=== PATIENT | male | born 1980 | race Caucasian/White ===

== ENCOUNTER 2022-11-27 22:39 | Emergency (ER) | payer BC ==
[2022-11-27] MEDS ORDERED: SODIUM BICARBONATE 8.4% 50 MEQ/50 ML VIAL ONE (22:58)
[2022-11-27] MEDS ORDERED: NALOXONE HCL 0.4 MG/ML VIAL ONE (23:16)
[2022-11-27] MEDS ORDERED: NALOXONE HCL 0.4 MG/ML VIAL IVPUSH ONE (23:34)
[2022-11-27 23:48] VITALS: BP 0/0; BMI 26.6
[2022-11-28 01:45] LABS: HEMOGLOBIN 16.1 GM/dL (11.7-16.9); MCH 30.9 pg (25.7-33.7); MCHC 29.3 g/dl (32.0-35.9); MEAN CELL VOLUME 105.5 fl (80-96); MEAN PLT VOLUME 10.1 fl (7.5-11.1); RBC 5.21 M/mm3 (4.00-5.60); RDW 15.2 % (11.9-15.9); WHITE BLOOD COUNT 15.4 K/mm3 (4.0-10.0)
[2022-11-28 02:00] LABS: CHLORIDE 89 mmol/L (98-107); SODIUM 129 mmol/L (136-145)
[2022-11-28 02:02] LABS: ALBUMIN 3.4 g/dl (3.4-5.0)
[2022-11-28 02:03] LABS: BLOOD UREA NITROGEN 11.5 mg/dL (7-18); CO2 19 mmol/L (21-32)
[2022-11-28 02:05] LABS: CREATININE 1.9 mg/dL (0.55-1.3)
[2022-11-28 02:07] LABS: BILIRUBIN,TOTAL 0.8 mg/dL (0.2-1); TOT PROT 7.4 g/dl (6.4-8.2)
[2022-11-28 02:08] LABS: ALK PHOS 268 U/L (45-117)
[2022-11-28 02:36] LABS: ANION GAP 21 MMOL/L (8-16); CALCIUM 18.6 mg/dL (8.5-10.1); GLUCOSE,RANDOM 532 mg/dL (74-106); SGOT/AST 6462 U/L (15-37); SGPT/ALT 4260 U/L (13-61)
[2022-11-28 02:49] LABS: INR > 15.00 (0.83-1.09); PROTHROMBIN TIME (PATIENT) > 230.00 SEC (9.7-13.0)
[2022-11-28 04:38] LABS: ANISOCYTOSIS 0; MACROCYTOSIS 0; PLATELET COUNT 185.6 10^3/uL (134-434); TEAR DROP CELLS 2+
== END 2022-11-28 03:14 | disposition expired ==
LOC: JER 22:39
PROC: 3E033GC Introduction of Other Therapeutic Substance into Peripheral Vein, Percutaneous Approach (ICD-10-PCS; principal; 2022-11-27)
DX: I46.9 Cardiac arrest, cause unspecified (principal)
CPT/HCPCS: 36415; 80053; 80307; 84484; 85025; 85610; 99284-25